=== PATIENT | female | born 1995 | race African-American/Black ===

== ENCOUNTER 2020-02-27 14:45 | Emergency (ER) | payer SELFPAY ==
[~2020-02-27] VITALS: Ht 175.3 cm; Wt 91.0 kg
[2020-02-27] MEDS ORDERED: ONDANSETRON HCL 4MG/2ML INJ IV STA (14:52)
[2020-02-27] MEDS ORDERED: SODIUM CHLORIDE 0.9% 1,000 ML IV ONE (15:00)
[2020-02-27 15:28] LABS: BG BASE EXCESS -5.1 mmol/L (-2.0-2.0); BG CARBOXYHEMOGLOBIN 3.8 % (0.5-1.5); BG DEOXYHEMOGLOBIN 2.6 % (0.0-5.0); BG HCO3 ACT 18.4 mmol/L (22.0-26.0); BG OXYGEN SATURATION 97.3 % (92.0-98.5); BG OXYHEMOGLOBIN 93.6 % (94.0-97.0); BG PCO2 30.3 mmHg (35.0-45.0); BG PH 7.401 (7.350-7.450); BG PO2 99.8 mmHg (75.0-100.0); BG SAMPLE SITE RIGHT BRACHIAL; BG TOTAL HEMOGLOBIN 14.1 g/dL (12.0-18.0); BG VENT MODE ROOM AIR
[2020-02-27 16:14] LABS: BASOPHILS % 0.8 % (0.0-2.0); EOSINOPHILS % 0.5 % (0.0-5.0); HEMOGLOBIN. 13.1 g/dL (12.0-16.0); LYMPHOCYTES % 42.7 % (20.0-50.0); MEAN CORPUSCULAR VOLUME 92.4 fL (81.0-99.0); MEAN PLATELET VOLUME 9.2 fl (7.4-10.4); MONOCYTES % 8.5 % (2.0-8.0); NEUTROPHILS % 47.5 % (40.0-76.0); PLATELET 339 x1000/uL (130-400); RED BLOOD CELL COUNT 4.22 mill/uL (4.2-5.4)
[2020-02-27 16:15] LABS: CLARITY URINE CLEAR (CLEAR); COLOR URINE YELLOW (YELLOW); KETONES URINE 1+ (NEGATIVE); LEUKOCYTE ESTERASE URINE NEGATIVE (NEGATIVE); NITRITE URINE NEGATIVE (NEGATIVE); OCCULT BLOOD URINE NEGATIVE (NEGATIVE); PH URINE 5.5 (4.5-8.0); PROTEIN URINE 1+ (NEGATIVE); SPECIFIC GRAVITY URINE 1.015 (1.005-1.030); UROBILINOGEN URINE 0.2 E.U./dL (0.2-1.0)
[2020-02-27 16:18] LABS: CHLORIDE 109 mEq/L (98-107)
[2020-02-27 16:24] LABS: ETHANOL BLOOD < 10 mg/dL
[2020-02-27 16:28] LABS: CREATINE KINASE 304 IU/L (26-192)
[2020-02-27 16:36] LABS: *BARBITURATES SCREEN URINE NEGATIVE (NEGATIVE)
[2020-02-27 16:37] LABS: *BENZODIAZEPINES SCREEN URINE NEGATIVE (NEGATIVE); *COCAINE SCREEN URINE NEGATIVE (NEGATIVE); CANNABINOID URINE SCREEN NEGATIVE (NEGATIVE); METHADONE URINE SCREEN NEGATIVE (NEGATIVE); OPIATES URINE SCREEN NEGATIVE (NEGATIVE); PHENCYCLIDINE URINE SCREEN NEGATIVE (NEGATIVE)
[2020-02-27 16:49] LABS: *AMPHETAMINES SCREEN URINE PRESUMTIVE POSITIVE (NEGATIVE)
[2020-02-27] MEDS ORDERED: OLANZAPINE 10 MG/VIAL IM ONE (19:45)
[2020-02-28 08:52] VITALS: BP 121/65
== END 2020-02-28 09:28 | disposition home or self-care (01) ==
LOC: ER 14:54
DX: T43.621A Poisoning by amphetamines, accidental (unintentional), initial encounter (principal); Y92.9 Unspecified place or not applicable; F19.10 Other psychoactive substance abuse, uncomplicated; R45.851 Suicidal ideations
CPT/HCPCS: 36415; 36600; 71045; 80053; 80305; 80320; 81003; 82375; 82550; 82805; 83690; 84484; 85025; 93005; 96361; 96372; 96374; 99285; J2405; J3490; G0480